=== PATIENT | male | born 1985 | race Caucasian/White ===

== ENCOUNTER 2017-01-08 18:00 | Inpatient (IN) | payer OTHER ==
--- NOTE | ~2017-01-08 | PN ---
Unit #: [id number] #: [id number] Patient: SONIA DUONG [id number] [facility] [address] [place] [address] [id number] I MR#: [id number] NAME: SONIA DUONG ROOM: P211 Age: 31 Sex: M Admission Date: 01/08/2017 : 1985 Attending Physician: Boogie Metz M.D. Admitting Physician: Boogie Metz M.D. Primary Care Physician: Primary Care Physician Coretta NUNEZ PROGRESS NOTES DATE 01/10/2017 DISCUSSION This patient was seen and evaluated on January 10, 2017. This person continues to detox from alcohol. There are no overt withdrawal symptoms at this time. The patient is having adequate sleep and appetite at this time. Encouraged to continue adequate fluid intake. We will continue to monitor for any symptoms of alcohol withdrawal. Dictated by... Xiomy Farrell/linette TD: 01/15/2017 22:27 JOB #: [id number] [facility] PROGRESS NOTES Page 1 of 1 X Cheri Murguia PROGRESS NOTE
--- NOTE | ~2017-01-08 | DS ---
Unit #: [id number] #: [id number] Patient: SONIA OSUNA [id number] [facility] [address] [place] [address] [id number] I MR#: [id number] NAME: SONIA OSUNA ROOM: P211 Age: 31 Sex: M Admission Date: 01/08/2017 : 1985 Discharge Date: 01/11/2017 Attending Physician: Boogie Metz M.D. Primary Care Physician: Primary Care Physician No DISCHARGE SUMMARY REASON FOR ADMISSION Mr. Osuna is a 31-year-old man admitted for alcohol abuse without suicidal ideation, intent, or plan. DIAGNOSTIC STUDIES LABORATORY RESULTS: Please see hospital chart. HOSPITAL COURSE The patient was admitted and placed on the alcohol detox protocol. Trazodone was provided for insomnia. No further medications were required, and the patient had an uneventful period of detox with no adverse events such as delirium, hallucinations, or confusion. On the date of discharge, he had established sobriety and was able to return to [place], [place]. DISCHARGE DIAGNOSES AXIS I: Alcohol dependence with withdrawal, uncomplicated. AXIS II: No diagnosis. AXIS III: Alcohol withdrawal, resolved. AXIS IV: AXIS V: DISCHARGE INSTRUCTIONS Follow up with [facility] in [place], [place]. DISCHARGE MEDICATIONS None. CONDITION AT DISCHARGE Improved. PROGNOSIS Fair to good if the patient maintains sobriety and followup. DIET AND ACTIVITY Ad jasmine. Dictated by... Boogie Metz M.D. [facility] Unit #: [id number] #: [id number] Patient: SONIA OSUNA TD: 02/15/2017 03:45 JOB #: [id number] DISCHARGE SUMMARY Page 1 of 1 X Boogie Metz MD X DISCHARGE SUMMARY
--- NOTE | ~2017-01-08 | PA ---
Unit #: [id number] #: [id number] Patient: SONIA DUONG [id number] [facility] [address] [place] [address] [id number] I MR#: [id number] NAME: SONIA DUONG ROOM: P211 Age: 31 Sex: M Admission Date: 01/08/2017 : 1985 Date of Assessment: Attending Physician: Boogie Metz M.D. Admitting Physician: Boogie Metz M.D. Primary Care Physician: Primary Care Physician No PSYCHIATRIC ASSESSMENT INFORMANTS Patient, reliable; OLOP, reliable. CHIEF COMPLAINT Alcohol dependence. HISTORY OF PRESENT ILLNESS The patient is a 31-year-old man, who was admitted here previously for alcohol dependence. He reported in [place], he has relapsed on alcohol and had difficulty establishing maintaining sobriety. [facility]. PAST PSYCHIATRIC HISTORY One previous admission to this facility about a year ago. FAMILY PSYCHIATRIC HISTORY The patient's father is an alcoholic. SOCIAL HISTORY Please see previous assessments, reviewed and unchanged. PAST MEDICAL HISTORY No chronic medical problems. MEDICATIONS None. ALLERGIES No known medication allergies. SUBSTANCE USE HISTORY As noted in the previous assessments. MENTAL STATUS EXAMINATION The patient presented as a mildly disheveled man, appearing his stated age. His speech was heavily accented, but understood with minimal translation difficulty. Mood was anxious with a congruent affect. He was alert and fully oriented with no psychosis and no suicidal or homicidal ideation. ADMITTING DIAGNOSES Unit #: [id number] #: [id number] Patient: SONIA DUONG AXIS I: Alcohol dependence with withdrawal, uncomplicated. AXIS II: No diagnosis. AXIS III: Alcohol withdrawal syndrome. AXIS IV: AXIS V: PSYCHIATRIC PLAN The patient was admitted and placed on the alcohol detox protocol. Trazodone was provided as needed for insomnia. Psychotherapy groups were engaged in a dual diagnosis path. Physical examination was accomplished. TREATMENT GOALS Establishment of sobriety, improvement in insight, and improvement in coping skills. DISCHARGE PLANNING Follow up with [facility]. ESTIMATED LENGTH OF STAY 5 days. Dictated by... Boogie Metz M.D. ADRIEL/oumou TD: 02/15/2017 11:52 JOB #: [id number] PSYCHIATRIC ASSESSMENT Page 1 of 1 X Boogie Metz MD PSYCHIATRIC ASSESSMENT
--- NOTE | ~2017-01-08 | HP ---
Unit #: [id number] #: [id number] Patient: BO DUONG [id number] [place] [address] [id number] I MR#: [id number] NAME: BO DUONG ROOM: P211 Age: 31 Sex: M Admission Date: 01/08/2017 : 1985 Attending Physician: Boogie Metz M.D. Admitting Physician: Boogie Metz M.D. Primary Care Physician: Primary Care Physician No HISTORY AND PHYSICAL HISTORY OF PRESENT ILLNESS Bo is a 31-year-old male admitted to [address] [place] [address] because of his abuse of alcohol. PAST MEDICAL HISTORY Long history of alcohol abuse. PAST SURGICAL HISTORY Nothing reported. ALLERGIES No known drug allergies. SOCIAL HISTORY He does not smoke. Drinks a case of beer plus tequila on a daily basis. Denies illicit drug use. FAMILY HISTORY Medically noncontributory. REVIEW OF SYSTEMS CONSTITUTIONAL: No fever or chills. HEENT: Denies any sore throat, ear pain or runny nose. CARDIOVASCULAR: Denies chest pain, irregular heart rhythm or palpitations. CHEST: Denies shortness of breath or cough. No hemoptysis. GASTROINTESTINAL: Denies nausea, vomiting, diarrhea or chronic constipation. ENDOCRINE: Denies history of increased thirst or urination. No recent significant weight loss or gain. GENITOURINARY: Denies dysuria, frequency, or hematuria. SKIN: Denies any rashes. HEMATOLOGIC: Denies history of increased bleeding or bruising. MUSCULOSKELETAL: Denies any hot, swollen joints. No generalized muscle pain. NEUROLOGIC: Denies problems with vision or speech. No frequent, severe headaches. No numbness, tingling or weakness in any extremities. Denies loss of bladder or bowel control. CURRENT MEDICATIONS Detox protocol. PHYSICAL EXAMINATION GENERAL: Alert, well-nourished, in no apparent distress. Unit #: [id number] #: [id number] Patient: BO DUONG VITAL SIGNS: Blood pressure 146/96, heart rate 80, respirations 16, temperature 98.6. WEIGHT: 153. HEIGHT: 5 feet 6 inches. SKIN: Warm and dry without rash or lesion. HEENT: Normocephalic. TMs not viewed. Oral and nasal passages clear. Conjunctivae clear. PERRLA. EOMs intact. NECK: Supple without lymphadenopathy or thyromegaly. HEART: Regular rate and rhythm without murmur. LUNGS: Clear. ABDOMEN: Soft, nontender. : Not done. EXTREMITIES: No evidence of cyanosis, clubbing or edema. Moves all without focal deficit. NEUROLOGICAL: Grossly within normal limits. Cranial Nerves: II: Visual muñoz are intact. III, IV AND : Extraocular movements are intact. Pupils are equal, round and reactive to light. V: Facial sensation is grossly normal. VII: Facial movements and expression are normal. VIII: Auditory acuity grossly intact. IX, X: Uvula is midline. Phonation is normal. XI: Patient shrugs shoulders and turns head normally. XII: Tongue protrudes in the midline. Sensory and Motor Function: Sensory and motor sensation is grossly normal. Motor: moves all extremities well. Coordination: Gait is normal. Deep Tendon Reflexes: Intact. IMPRESSION Psychiatric admission. RECOMMENDATIONS PSYCHIATRIC: Per psychiatrist. MEDICAL: See no contraindication to participate in facility's activities. MEDICAL PROGNOSIS Good. MEDICAL CONDITION Stable. Dictated by... Mary Chu P.A.-C. for Pina Horner/eliel TD: 01/09/2017 22:46 JOB #: [id number] Unit #: [id number] #: [id number] Patient: BO DUONG HISTORY AND PHYSICAL Page 1 of 1 X Mary Chu HISTORY AND PHYSICAL
[2017-01-09 09:46] LABS: BASOPHIL# 0.1 X10e3 (0-0.3); BASOPHIL% 1.3 % (0-2.5); EOSINOPHIL# 0.1 X10e3 (0-0.7); EOSINOPHIL% 2.1 % (0.0-7.0); HEMATOCRIT 44.2 % (38.0-50.0); HEMOGLOBIN 14.7 gm/dL (13.0-16.0); LYMPHOCYTE% 46.9 % (17.0-45.0); MEAN CELL VOLUME 89.1 FL (83-96); MEAN CORPUSCULAR HEMOGLOBIN 29.6 PG (28-34); MEAN CORPUSCULAR HGB CONC 33.3 g/dL (30-36); MEAN PLATELET VOLUME 6.9 FL (6.5-11.5); MONOCYTE# 0.4 X10e3 (0-1.0); MONOCYTE% 8.1 % (3.0-12.0); NEUTROPHIL# 1.8 X10e3 (1.5-7.1); NEUTROPHIL% 41.6 % (40-75); PLATELET COUNT 291 X10e3 (140-420); RED BLOOD COUNT 4.96 X10e (3.90-5.60); RED CELL DISTRIBUTION WIDTH 15.6 % (11.0-15.5); WHITE BLOOD COUNT 4.3 X10e3 (4.0-10.5)
[2017-01-09 10:02] LABS: DIFF IND NO
[2017-01-09 10:03] LABS: ALBUMIN SERUM 4.4 g/dL (3.5-5.0); BILIRUBIN,TOTAL 0.9 mg/dL (0.2-2.0); BUN/CREATININE RATIO 18.33; CALCIUM SERUM 9.4 mg/dL (8.4-10.2); CREATININE SERUM 0.6 mg/dL (0.6-1.4); GLOM FILT RATE Estimated 133.1 mL/min (>60); POTASSIUM 3.4 mmol/L (3.5-5.1); PROTEIN TOTAL SERUM 7.3 g/dL (6.0-8.3)
== END 2017-01-11 11:25 | disposition home or self-care (01) | DRG 897 ==
LOC: P2S 23:38
PROVIDERS: Psychiatry & Neurology Psychiatry
PROC: HZ2ZZZZ Detoxification Services for Substance Abuse Treatment (ICD-10-PCS; principal; 2017-01-08)
DX: F10.230 Alcohol dependence with withdrawal, uncomplicated (principal)
CPT/HCPCS: 80053; 85025

== ENCOUNTER 2017-03-28 10:00 | Inpatient (IN) | payer SELFPAY ==
[~2017-03-28] VITALS: Ht 162.6 cm; Wt 67.1 kg
--- NOTE | ~2017-03-28 | HP ---
Unit #: [id number] #: [id number] Patient: BO RICHEY [id number] [place] [address] [id number] I MR#: [id number] NAME: BO RICHEY ROOM: P180 Age: 31 Sex: M Admission Date: 03/28/2017 : 1985 Attending Physician: Boogie Metz M.D. Admitting Physician: Boogie Metz M.D. Primary Care Physician: Primary Care Physician No HISTORY AND PHYSICAL HISTORY OF PRESENT ILLNESS Bo is a 31 year old gentleman admitted to [facility] because of his abuse of alcohol. I am speaking to him today with his manpower development specialist manager. PAST MEDICAL HISTORY Long history of alcohol abuse. PAST SURGICAL HISTORY Nothing reported. ALLERGIES No known drug allergies. SOCIAL HISTORY He does not smoke. Drinks at least a case of beer on a daily basis and denies illicit drug use. FAMILY HISTORY Medically noncontributory. REVIEW OF SYSTEMS CONSTITUTIONAL: No fever or chills. HEENT: Denies any sore throat, ear pain or runny nose. CARDIOVASCULAR: Denies chest pain, irregular heart rhythm or palpitations. CHEST: Denies shortness of breath or cough. No hemoptysis. GASTROINTESTINAL: Denies nausea, vomiting, diarrhea or chronic constipation. ENDOCRINE: Denies history of increased thirst or urination. No recent significant weight loss or gain. GENITOURINARY: Denies dysuria, frequency, or hematuria. SKIN: Denies any rashes. HEMATOLOGIC: Denies history of increased bleeding or bruising. MUSCULOSKELETAL: Denies any hot, swollen joints. No generalized muscle pain. NEUROLOGIC: Denies problems with vision or speech. No frequent, severe headaches. No numbness, tingling or weakness in any extremities. Denies loss of bladder or bowel control. CURRENT MEDICATIONS Detox protocol. PHYSICAL EXAMINATION Unit #: [id number] #: [id number] Patient: BO RICHEY GENERAL: Alert, well-nourished, gentleman laying in bed who appears acutely ill and alcohol detox. Vital signs 154/104. Heart rate 90, respiration 16, temperature 98.6. WEIGHT: 148. HEIGHT: 5 foot 4 inches. SKIN: Warm and dry without rash or lesion. HEENT: Normocephalic. TMs not viewed. Oral and nasal passages clear. Conjunctivae clear. Pupils equal, round and reactive to light and accommodation. Extraocular movements intact. NECK: Supple without lymphadenopathy or thyromegaly. HEART: Regular rate and rhythm without murmur. LUNGS: Clear. ABDOMEN: Soft, nontender. : Not done. EXTREMITIES: No evidence of cyanosis, clubbing or edema. Moves all extremities without focal deficit. NEUROLOGICAL: Unable to complete extended exam. He does move all extremities without focal deficit. Hand watchstander is equal and gait is normal. IMPRESSION Psychiatric admission. RECOMMENDATIONS PSYCHIATRIC: Per psychiatrist. MEDICAL: I see no contraindications to participating in facility's activities. MEDICAL PROGNOSIS Good. MEDICAL CONDITION Stable. Dictated by... Debby EscobarAEster. for Pina Horner/linette TD: 03/28/2017 21:32 JOB #: [id number] HISTORY AND PHYSICAL Page 1 of 1 X Mary Chu X HISTORY AND PHYSICAL
--- NOTE | ~2017-03-28 | PA ---
Unit #: [id number] #: [id number] Patient: SONIA RICHEY [id number] [facility] [address] [place] [address] [id number] I MR#: [id number] NAME: SONIA RICHEY ROOM: P180 Age: 31 Sex: M Admission Date: 03/28/2017 : 1985 Date of Assessment: Attending Physician: Boogie Metz M.D. Admitting Physician: Boogie Metz M.D. Primary Care Physician: Primary Care Physician No PSYCHIATRIC ASSESSMENT DATE OF SERVICE 03/29/2017. INFORMANTS The patient reliable; OLOP, reliable. CHIEF COMPLAINT Depression and drinking. HISTORY OF PRESENT ILLNESS Mr. Sean Kwon is a 31-year-old man who presented to [facility] with a high alcohol level after drinking a pint of Tequila and about 40 beers. He got into an argument with mother of his child over visitation, felt desperate and had thoughts of wanting to jump in front of a car. He was also having detox symptomatology. He was unable to contract for safety and [facility] PAST PSYCHIATRIC HISTORY The patient has been admitted to this facility in the past for detox and treatment. He is not currently taking any psychiatric medications. FAMILY PSYCHIATRIC HISTORY There is a family history of alcoholism. SOCIAL HISTORY The patient is single and is currently staying with family. 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 PAST MEDICAL HISTORY No chronic medical problems. MEDICATIONS None. ALLERGIES No known medication allergies. SUBSTANCE USE HISTORY As noted, the patient has extensive history of alcohol dependence and has been admitted here in the past. MENTAL STATUS EXAMINATION Mr. Sean Kwon presented as a disheveled man who appeared older than his Unit #: [id number] #: [id number] Patient: SONIA RICHEY stated age. He was cooperative with the examination. His speech was heavily accented with minimal Tajik language skills, and services of a Panamanian language path were employed. His mood was depressed with a congruent affect. He was alert and fully oriented. Memory and concentration were fair. His thought processes were logical with no active psychosis. He reported some suicidal ideation, but contracted for safety in the hospital. Insight and judgment were fair. Fund of knowledge and abstraction were fair. ASSETS AND LIABILITIES Assets; the patient knows local resources and presents voluntarily for treatment. Liabilities; include difficulty maintaining sobriety and family conflict. ADMITTING DIAGNOSES AXIS I: Major depression, alcohol dependence. AXIS II: No diagnosis. AXIS III: Alcohol withdrawal syndrome. AXIS IV: AXIS V: PSYCHIATRIC PLAN Mr. Cardoso was admitted and placed on suicide precautions. He initially declined to start of an antidepressant medication, but we will continue to make this offer and work with him as appropriate. He will enroll in dual diagnosis groups and activities. TREATMENT GOALS Resolution of SI, establishment of sobriety, improvement in insight, and improvement in coping skills. DISCHARGE PLANNING Follow up with [facility] in [place], [place]. ESTIMATED LENGTH OF STAY 5 days. Dictated by... Boogie Metz M.D. ADRIEL/oumou TD: 04/05/2017 15:23 JOB #: [id number] PSYCHIATRIC ASSESSMENT Page 1 of 1 X Boogie Metz MD X PSYCHIATRIC ASSESSMENT
--- NOTE | ~2017-03-28 | PN ---
Unit #: [id number] #: [id number] Patient: BO RICHEY [id number] [facility] [address] [place] [address] [id number] I MR#: [id number] NAME: BO RICHEY ROOM: P180 Age: 31 Sex: M Admission Date: 03/28/2017 : 1985 Attending Physician: Boogie Metz M.D. Admitting Physician: Boogie Metz M.D. Primary Care Physician: Primary Care Physician No SALUDCE PROGRESS NOTES DATE OF SERVICE 03/31/2017 DISCUSSION Bo was seen today with the assistance of a Pashto transportation aide. He reports ongoing detox symptomatology and difficulty sleeping. He denies any depression or suicidal ideations today. He is not showing any episodes of confusion disorientation or delirium. ASSESSMENT Alcohol dependence. PLAN We will continue current treatment plan and add Seroquel 100 mg at bedtime to assist with restful sleep. Dictated by... Pina Brown/linette TD: 04/05/2017 01:14 JOB #: [id number] [facility] PROGRESS NOTES Page 1 of 1 X Boogie Metz MD X PROGRESS NOTE
--- NOTE | ~2017-03-28 | CO ---
Unit #: [id number] #: [id number] Patient: SONIA RICHEY [id number] [place] [address] [id number] I MR#: [id number] NAME: SONIA RICHEY ROOM: P180 Age: 31 Sex: M Admission Date: 03/28/2017 : 1985 Attending Physician: Boogie Metz M.D. Primary Care Physician: Primary Care Physician No Consultation Date: 03/29/2017 CONSULTATION REPORT DESMOND Soriano is a 31 year old, with long history of alcohol abuse. During the first 24 hours of his admission, he complained of significant gastritis that was not relieved with Pepcid 20 mg b.i.d. He denied any nausea, vomiting, hematemesis, or melena. We have been asked to assess and given recommendations. He was seen for his admission H and P on 03/28/17. At that time, abdomen was soft, nontender, with hyperactive bowel sounds. We will continue Pepcid 20 mg b.i.d. and add Carafate 1 gram a.c. and h.s. He can follow up with PCP as needed. Dictated by... Mary Chu P.A.-C. for Pina Horner/katy TD: 04/05/2017 11:48 JOB #: [id number] CONSULTATION REPORT Page 1 of 1 X Mary Chu CONSULTATION REPORT
--- NOTE | ~2017-03-28 | DS ---
Unit #: [id number] #: [id number] Patient: SONIA RICHEY [id number] [facility] [address] [place] [address] [id number] I MR#: [id number] NAME: SONIA RICHEY ROOM: P180 Age: 31 Sex: M Admission Date: 03/28/2017 : 1985 Discharge Date: 04/01/2017 Attending Physician: Boogie Metz M.D. Primary Care Physician: Primary Care Physician No DISCHARGE SUMMARY REASON FOR ADMISSION Mr. Kwon is a 31-year-old man, who has a long history of alcohol dependence and recent relapses. He has been drinking up to forty beers and a pint of tequila daily. He had suicidal ideation and was admitted for psychiatric assessment and detox. DIAGNOSTIC STUDIES Laboratory data, RPR was nonreactive. HOSPITAL COURSE The patient was admitted and placed on suicide precautions and the alcohol detox protocol. He declined initiation of an antidepressant medication and tolerated detox without any adverse side effects. The services of a Libyan professor of languages were employed for group attendance and physician interviews. On the date of discharge he had completed detox with a good mood, bright affect, and no further suicidal ideation, intent, or plan. DISCHARGE DIAGNOSES [place] I Major depression. Alcohol dependence. [place] II No diagnosis. [place] III Alcohol withdrawal, resolved. [place] IV [place] V INSTRUCTIONS TO PATIENT Follow up with [facility] in [place], [place]. DISCHARGE MEDICATIONS None. CONDITION AT DISCHARGE Improved. PROGNOSIS Fair if the patient maintains sobriety and followup. DIET AND ACTIVITY Ad jasmine. Unit #: [id number] #: [id number] Patient: SONIA RICHEY Dictated by... Boogie Metz M.D. ADRIEL/katy TD: 04/05/2017 07:44 JOB #: [id number] DISCHARGE SUMMARY Page 1 of 1 X Boogie Metz MD X DISCHARGE SUMMARY
--- NOTE | ~2017-03-28 | CO ---
Unit #: [id number] #: [id number] Patient: SONIA RICHEY [id number] [place] [address] [id number] MR#: [id number] NAME: SONIA RICHEY ROOM: P180 Age: 31 Sex: M Admission Date: 03/28/2017 : 1985 Attending Physician: Boogie Metz M.D. Consultation Date: 03/29/2017 CONSULTATION REPORT DESMOND Soriano is a 31-year-old with a long history of alcohol abuse. During the first 24 hours of his admission, he complained of significant gastritis that was not relieved with Pepcid 20 mg b.i.d. He denied any nausea, vomiting, hematemesis, or melena. We have been asked to assess and give recommendations. He was seen for his admission H and P on 03/28/2017. At that time, abdomen was soft, nontender with hyperactive bowel sounds. We will continue Pepcid 20 mg b.i.d. and add Carafate 1 g a.c. and h.s. He can follow up with PCP as needed. Dictated by... Mary Chu P.A.-C. for Pina Horner/oumou TD: 04/05/2017 17:21 JOB #: [id number] CONSULTATION REPORT Page 1 of 1 X Mary Chu CONSULTATION REPORT
== END 2017-04-01 17:00 | DRG 897 ==
LOC: P1E 13:39
PROC: HZ2ZZZZ Detoxification Services for Substance Abuse Treatment (ICD-10-PCS; principal; 2017-03-28)
DX: F10.20 Alcohol dependence, uncomplicated (principal)
CPT/HCPCS: 86592; J2550